=== PATIENT | female | born 1980 | race Two or more races ===

== ENCOUNTER 2024-09-19 15:09 | Emergency (ER) | payer OTHER, SELFPAY ==
[2024-09-19 15:09] VITALS: BMI 28.3
[2024-09-19 15:21] VITALS: BP 132/80; PULSE 115; RESP 20; TEMP 38.1; O2SAT 97
--- NOTE | 2024-09-19 15:26 | XR_ITS ---
Examination: PA lateral chest 2 views TECHNIQUE: Upright PA lateral chest 2 views Exam date and time: September 19, 2024 1553 hours INDICATIONS: Coughing vomiting beginning one week ago. FINDINGS: Reduced inspiratory effort Normal heart size Lungs are clear IMPRESSION: Poor inspiratory effort chest x-ray
[2024-09-19 15:32] VITALS: TEMP 38.1
[2024-09-19] MEDS: IBUPROFEN TAB 400 MG TABLET 800 MG PO (15:32)
--- NOTE | 2024-09-19 16:52 | PD.EDURI ---
Upper Respiratory Inf. RME/HPI General Chief Complaint: Flu Like Symptoms Stated Complaint: WEAK/VOMITING/COUGH TODAY Time Seen by Provider: 09/19/24 15:17 Arrival date/time: 09/19/24 15:09 43-year-old female presents [facility] department complaints of generalized fatigue, cough, vomiting which began today patient is daughter is being seen as well who tested positive for influenza today as well as strep throat Limitations: no limitations Related Data Home Medications ?Medication ?Instructions ?Recorded ?Confirmed atorvastatin 10 mg tablet 10 mg PO QDAY 10/13/21 10/21/22 ergocalciferol (vitamin D2) 1,250 1,250 mcg PO QWEEK 10/13/21 10/21/22 mcg (50,000 unit) capsule lisinopril 5 mg tablet 5 mg PO QDAY 10/13/21 10/21/22 ferrous sulfate 325 mg (65 mg 325 mg PO QDAY 10/21/22 10/21/22 iron) tablet (FeroSul) Previous Rx's ?Medication ?Instructions ?Recorded ciprofloxacin HCl 500 mg tablet 500 mg PO BID #14 tabs 10/21/22 (Cipro) ketorolac 10 mg tablet 10 mg PO Q8H #14 tabs 10/21/22 tamsulosin 0.4 mg capsule (Flomax) 0.4 mg PO QDAY #20 caps 10/21/22 naproxen 375 mg tablet 375 mg PO BID PRN pain #30 tabs 03/15/23 hydrocodone 5 mg-acetaminophen 325 1 tab PO BID PRN pain #10 tabs 05/12/23 mg tablet ibuprofen 600 mg tablet 600 mg PO Q6H #30 tabs 05/12/23 hydrocortisone 2.5 % topical cream 1 applic topical BID PRN itching 07/24/23 #30 grams ibuprofen 800 mg tablet 800 mg PO TID PRN pain #30 tabs 03/15/24 amoxicillin 875 mg-potassium 1 tab PO BID 7 days #14 tabs 09/19/24 clavulanate 125 mg tablet diphenhydramine HCl 25 mg capsule 25 mg PO Q8H PRN allergic symptoms 09/19/24 (Benadryl) #30 caps Allergies Allergy/AdvReac Type Severity Reaction Status Date / Time metoclopramide Allergy Severe Hives Verified 09/19/24 15:12 ondansetron Allergy Severe ITCHING, Verified 09/19/24 15:12 HIVES promethazine Allergy Severe RASH Verified 09/19/24 15:12 meperidine [From Demerol] Allergy Unknown Verified 09/19/24 15:12 Review of Systems Review of Systems Systems Reviewed: All systems reviewed, normal except as documented Constitutional Constitutional: Reports system reviewed and no additional complaints, except as documented, Reports body ache(s), Reports chills, Reports fever(s) and Reports headache(s) Eyes Eyes: Reports system reviewed and no additional complaints, except as documented and Denies blurry vision ENT Ears, Nose, Mouth, and Throat: Reports system reviewed and no additional complaints, except as documented, Reports headache(s), Reports nasal congestion and Reports nasal discharge Cardiovascular Cardiovascular: Reports system reviewed and no additional complaints, except as documented, Denies chest pain and Denies dyspnea Respiratory Respiratory: Reports system reviewed and no additional complaints, except as documented, Denies chest congestion, Denies cough and Denies dyspnea Gastrointestinal Gastrointestinal: Reports system reviewed and no additional complaints, except as documented, Denies abdominal pain, Reports nausea and Reports vomiting Integumentary/Breasts Skin/Breast: Reports system reviewed and no additional complaints, except as documented and Denies rash Neurologic Neurologic: Reports system reviewed and no additional complaints, except as documented, Reports as per HPI and Reports headache(s) Past Medical History Past Medical History NEUROLOGIC: Negative Neurological Disorders CARDIAC: Negative Cardiac Disorders ED Exam General Limitations: Present no limitations General appearance: Present alert and in no apparent distress Head Head exam: Present atraumatic Eye Eye exam: Present normal appearance, PERRL and EOMI ENT ENT exam: Present normal exam, normal oropharynx and mucous membranes moist Neck Neck exam: Present normal inspection, full ROM and trachea midline Chest Chest inspection: Present normal inspection and symmetric chest wall rise Respiratory Respiratory exam: Present normal lung sounds bilaterally Cardiovascular Cardiovascular exam: Present regular rate, normal rhythm and normal heart sounds Abdominal Exam Abdominal exam: Present soft and normal bowel sounds; Absent distention, tenderness, guarding, rebound, rigidity, Flores's sign or tenderness at McBurney's Point Abdominal tenderness: Absent RUQ or RLQ Extremities Exam Extremities exam: Present normal inspection and full ROM Back Exam Back exam: Present normal inspection and full ROM Neurological Exam Neurological exam: Present alert, oriented X3 and CN II-XII intact Psychiatric Psychiatric exam: Present normal affect and normal mood Skin Skin exam: Present warm, dry, intact and normal color Course Quality Measures none Orders Category Date Time Status Bedside COVID-19 Antigen Test NOW Care 09/19/24 15:18 Completed Bedside Influenza A&B Antigen Test NOW Care 09/19/24 15:18 Completed XR chest 2V Stat Exams 09/19/24 15:26 Completed Ibuprofen Tab [Motrin Tab] Med 09/19/24 15:27 Discontinued 800 mg PO X1 ONE Vital Signs Vital signs: Vital Signs Temperature 100.6 F H 09/19/24 15:21 Pulse Rate 115 H 09/19/24 15:21 Respiratory Rate 20 09/19/24 15:21 Blood Pressure 132/80 H 09/19/24 15:21 Pulse Oximetry (%) 97 09/19/24 15:21 Oxygen Delivery Method Room Air 09/19/24 15:21 O2 saturation 97% room air within normal limits Upper Respiratory Infection MDM Narrative MDM Narrative:: 43-year-old female presents emergency department complaints of generalized fatigue, cough, vomiting which began today patient is daughter is being seen as well who tested positive for influenza today as well as strep throat On exam patient well-appearing patient does not appear ill or toxic in no acute distress Lab work and x-ray obtained no acute emergent findings noted Symptoms are highly consistent with viral illness and patient has agreed to exposure to flu as well as strep throat because the patient was exposed to strep throat reports fever I will treat the patient with course of antibiotics Patient discharged home in no distress to follow-up with primary care doctor in the next 24 to 48 hours and for any worsening symptoms to return to the ER immediately Patient data External records reviewed:: [facility] previous records Clinical information provided by:: patient Social determinants that could affect healthcare access:: none Patient has the following chronic illnesses:: See history How is presenting disease/condition affected by chronic disease/condition?: uneffected by Evaluation data The following diagnostics were reviewed and interpreted by me:: lab results and radiology exam(s) Lab and/or radiology exams considered but not ordered:: Labs radiology obtained Interpretation Summary: Reviewed by me Medications / Prescriptions Medications or Prescriptions considered but not ordered:: Given Medication administrations:: Medication Administration History Discontinued Medications Ibuprofen (Ibuprofen Tab 400 Mg Tablet) 800 mg PO X1 ONE Stop: 09/19/24 15:28 Last Admin: 09/19/24 15:32 Dose: 800 mg Documented By: OA Given Consultations Consultation(s) initiated? (list below): No Diagnosis Upper Respiratory Differential Diagnosis: upper respiratory infection, otitis media, sinusitis, viral infection and pharyngitis Most likely diagnosis given after review of the tests above:: URI Admission Indicated Admission indicated?: not indicated Admission Request Was there a request for admission?: No Disposition Plan Disposition Plan: Discharge Discharge Attestation Discharge Attestation: The patient and all family members were given an opportunity to ask questions and understood the discharge instructions. Discharge instructions specifically effects, indications for sooner follow up or return to the emergency department, and the expected course of current diagnosis. Patient condition: Stable Discharge Plan Plan Patient Disposition: HOME (Self Care) Disposition Comment: Stable Prescriptions/Referrals Prescriptions/Med Rec: New diphenhydramine HCl [Benadryl] 25 mg capsule 25 mg PO Q8H PRN (Reason: allergic symptoms) Qty: 30 0RF amoxicillin-pot clavulanate 875-125 mg tablet 1 tab PO BID 7 Days Qty: 14 0RF No Action atorvastatin 10 mg tablet 10 mg PO QDAY Patient Comments: TAKE ONE TABLET BY MOUTH EVERY DAY FOR CHOLESTEROL lisinopril 5 mg tablet 5 mg PO QDAY Patient Comments: TAKE ONE TABLET BY MOUTH EVERY DAY FOR BLOOD PRESSURE ergocalciferol (vitamin D2) 1,250 mcg (50,000 unit) capsule 1,250 mcg PO QWEEK Patient Comments: TAKE ONE CAPSULE BY MOUTH ONCE A WEEK Rx Instructions: SUNDAYS naproxen 375 mg tablet 375 mg PO BID PRN (Reason: pain) Qty: 30 0RF hydrocodone-acetaminophen 5-325 mg tablet 1 tab PO BID MDD 10 PRN (Reason: pain) Qty: 10 0RF ibuprofen 600 mg tablet 600 mg PO Q6H Qty: 30 0RF hydrocortisone 2.5 % cream 1 applic topical BID PRN (Reason: itching) Qty: 30 0RF ferrous sulfate [FeroSul] 325 mg (65 mg iron) tablet 325 mg PO QDAY Patient Comments: TAKE ONE TABLET BY MOUTH EVERY DAY tamsulosin [Flomax] 0.4 mg capsule 0.4 mg PO QDAY Qty: 20 0RF ketorolac 10 mg tablet 10 mg PO Q8H Qty: 14 0RF ciprofloxacin HCl [Cipro] 500 mg tablet 500 mg PO BID Qty: 14 0RF ibuprofen 800 mg tablet 800 mg PO TID PRN (Reason: pain) Qty: 30 0RF Referrals: No Primary/Family,Physician [Primary Care Provider] - In 1 week Problem List Clinical Impression: Nausea & vomiting, Exposure to influenza Patient/Caregiver Discharge Instructions Print Language: Croatian Stand Alone Forms: Milly Award Info., Patient Portal Info Letter
[2024-09-19 16:59] VITALS: PULSE 88; TEMP 37.3
== END 2024-09-19 17:26 | disposition home or self-care (01) ==
PROVIDERS: Emergency Provider Emergency Medicine
DX: R11.2 Nausea with vomiting, unspecified (principal); Z20.828 Contact with and (suspected) exposure to other viral communicable diseases
CPT/HCPCS: 71046; 87400; 87811; 99283; A9270

== ENCOUNTER 2024-09-26 23:36 | Emergency (ER) | payer OTHER, SELFPAY ==
[2024-09-26 23:36] VITALS: BMI 28.3
[2024-09-27 00:37] VITALS: BP 121/86; PULSE 76; RESP 20; TEMP 36.8; O2SAT 99
--- NOTE | 2024-09-27 00:53 | EDNOTE_ITS ---
Upper Respiratory Inf. RME/HPI General Chief Complaint: Shortness of Breath/Dyspnea Stated Complaint: SOB X3 HR Time Seen by Provider: 09/27/24 00:49 Arrival date/time: 09/26/24 23:36 43F with no significant PMH presents to ED with several hours of SOB. Patient was diagnosed with both influenza and strep at the clinic and was given Penicillin IM. Limitations: no limitations Related Data Home Medications ?Medication ?Instructions ?Recorded ?Confirmed atorvastatin 10 mg tablet 10 mg PO QDAY 10/13/21 10/21/22 ergocalciferol (vitamin D2) 1,250 1,250 mcg PO QWEEK 10/13/21 10/21/22 mcg (50,000 unit) capsule lisinopril 5 mg tablet 5 mg PO QDAY 10/13/21 10/21/22 ferrous sulfate 325 mg (65 mg 325 mg PO QDAY 10/21/22 10/21/22 iron) tablet (FeroSul) Previous Rx's ?Medication ?Instructions ?Recorded ciprofloxacin HCl 500 mg tablet 500 mg PO BID #14 tabs 10/21/22 (Cipro) ketorolac 10 mg tablet 10 mg PO Q8H #14 tabs 10/21/22 tamsulosin 0.4 mg capsule (Flomax) 0.4 mg PO QDAY #20 caps 10/21/22 naproxen 375 mg tablet 375 mg PO BID PRN pain #30 tabs 03/15/23 hydrocodone 5 mg-acetaminophen 325 1 tab PO BID PRN pain #10 tabs 05/12/23 mg tablet ibuprofen 600 mg tablet 600 mg PO Q6H #30 tabs 05/12/23 hydrocortisone 2.5 % topical cream 1 applic topical BID PRN itching 07/24/23 #30 grams ibuprofen 800 mg tablet 800 mg PO TID PRN pain #30 tabs 03/15/24 diphenhydramine HCl 25 mg capsule 25 mg PO Q8H PRN allergic symptoms 09/19/24 (Benadryl) #30 caps Allergies Allergy/AdvReac Type Severity Reaction Status Date / Time metoclopramide Allergy Severe Hives Verified 09/26/24 23:38 ondansetron Allergy Severe ITCHING, Verified 09/26/24 23:38 HIVES promethazine Allergy Severe RASH Verified 09/26/24 23:38 meperidine [From Demerol] Allergy Unknown Verified 09/26/24 23:38 Review of Systems Review of Systems Systems Reviewed: All systems reviewed, normal except as documented Constitutional Constitutional: Reports system reviewed and no additional complaints, except as documented, Denies fever(s) and Denies headache(s) ENT Ears, Nose, Mouth, and Throat: Denies disequilibrium and Denies headache(s) Cardiovascular Cardiovascular: Reports system reviewed and no additional complaints, except as documented, Denies chest pain and Reports dyspnea Respiratory Respiratory: Reports system reviewed and no additional complaints, except as documented, Reports as per HPI, Denies cough and Reports dyspnea Gastrointestinal Gastrointestinal: Reports system reviewed and no additional complaints, except as documented, Denies abdominal pain, Denies nausea and Denies vomiting Neurologic Neurologic: Reports system reviewed and no additional complaints, except as documented, Denies confusion, Denies disequilibrium and Denies headache(s) Psychiatric Psychiatric: Denies confusion Past Medical History Past Medical History NEUROLOGIC: Positive Migraine; Negative Neurological Disorders, Cerebrovascular Accident, Transient Ischemic Attacks (TIA), Dementia, Alzheimer's Disease, Parkinson's Disease, Brain Tumor, Meningitis, Seizures, Epilepsy, Multiple Sclerosis, Cerebral Palsy, Amyotrophic Lateral Sclerosis (ALS/Abby Gehrig's), Guillain-Bronx Syndrome, Spina Bifida, Paralysis, Becerra's Palsy, Subdural Hematoma, Head Trauma, Spinal Cord Injury or Traumatic Brain Injury CARDIAC: Positive Hypercholesterolemia and Hypertension; Negative Cardiac Disorders, Myocardial Infarction, Cardiac Arrhythmia, Atrial Fibrillation, Angina, Heart Murmur, Coronary Artery Disease, Atherosclerotic Heart Disease, Peripheral Vascular Disease, Aneurysm, Congestive Heart Failure, Congenital Heart Disease, Valvular Heart Disease, Rheumatic Fever, Cardiomyop athy, Edema, Pericarditis, Cellulitis, Deep Vein Thrombosis, Hypotension or Varicose Veins RESPIRATORY: Negative Chronic Obstructive Pulmonary Disease (COPD), Asthma, Bronchitis, Emphysema, Pneumonia, Cystic Fibrosis, Tuberculosis, Pulmonary Embolism, Pulmonary Edema or Sleep Apnea GASTROINTESTINAL: Positive Gastrointestinal Disorders and Hemorrhoids; Negative Hepatitis, Cirrhosis, Pancreatitis, Celiac Disease, Gall Bladder Disease, Gastrointestinal Bleed, Esophageal Varices, Esparza's Esophagus, Colitis, Ulcerative Colitis, Diverticulitis, Diverticulosis, Ulcer, Colorectal Cancer, Irritable Bowel, Crohn's Disease, Obstructive Bowel, Hiatal Hernia, Gastroesophageal Reflux Disease or Obesity GENITOURINARY: Positive Genitourinary Disorders and Kidney Stones; Negative Renal Disease, Polycystic Kidney Disease, Neurogenic Bladder, Inguinal Hernia, Dialysis, Prostate Cancer or Benign Prostatic Hyperplasia REPRODUCTIVE: Positive Previous Pregnancies; Negative Breast Cancer, Endometriosis, Genital Herpes, Gonorrhea, Pelvic Inflammatory Disease, Syphilis, Testicular Cancer or Uterine Prolapse MUSCULOSKELETAL: Positive Musculoskeletal Disorders; Negative Muscular Dystrophy, Myasthenia Gravis, Marfan's Syndrome, Bone Cancer, Arthritis, Rheumatoid Arthritis, Osteoporosis, Degenerative Disk Disease, Gout, Scoliosis, Carpal Tunnel Syndrome, Fibromyalgia, Fractures, Degenerative Joint Disease, Osteomyelitis or Poliovirus ENT: Negative Cataracts, Glaucoma, Blind, Retinal Detachment, Macular Degeneration, Ear Infection, Deafness, Head Trauma or Eye Prosthesis ENDOCRINE: Negative Endocrine Disorders, Diabetes Mellitus Type 1, Diabetes Mellitus Type 2, Hypoglycemia, [place]'s Syndrome, Ojby's Disease, Hyperthyroidism, Hypothyroidism, Parathyroid Disease, Pituitary Disease, Systemic Lupus Erythematosus, Syndrome of Inappropriate Antidiuretic Hormone (SIADH), Adrenal Disease or Graves' Disease HEMATOLOGIC: Negative Blood Disorders, Anemia, Leukemia, Hemophilia, Thalassemia, Sickle Cell Disease or Clotting Problems PSYCHO/SOCIAL: Positive Anxiety and Depression; Negative Psychiatric Problems, Schizophrenia, Recreational Drug Use, Bipolar Disorder, Depression, Behavior Problems, Self-Mutilation, Attention Deficit Disorder, Attention Deficit Hyperactivity Disorder, Post Traumatic Stress Disorder or Eating Disorder OTHER HISTORY: Positive Hospitalization, Blood Transfusions, Chicken Pox and Ovarian Cancer; Negative Autoimmune Disease, Down Syndrome, Autism, Developmental Delay, Shingles, Falls, Blood Transfusion Reaction, Anesthesia Reactions, Organ Transplant, Chemotherapy, Radiation Therapy, Hyperbaric Therapy, MRSA, VRSA, Vancomycin-Resistant Enterococci, Human Immunodeficiency Virus (HIV), Measles, Mumps, Rubella ([place] Measles), Pertussis, Cancer, Breast Cancer, Cervical Cancer, Colorectal Cancer, Lung Cancer, Prostate Cancer or Testicular Cancer Family History FAMILY HISTORY: Positive Family Cardiac Disorders and Family Surgery; Negative Family Psychiatric Problems, Family Respiratory Disorders, Family Gastrointestinal Problems, Family Cancer or Family Anesthesia Reaction Surgical History SURGICAL: Positive Hysterectomy; Negative Cardiac Surgery, Open Heart Surgery, Coronary Artery Bypass Graft, Valve Replacement, Vascular Surgery, Coronary Stent, Cardiac Catheterization, Pacemaker, Angiogram, Auto Implanted Cardiovert Defib, Carotid Endarterectomy, Endocrine Surgery, Thyroidectomy, Ear Surgery, Tympanostomy Tube, Eye Surgery, Nose Surgery, Oral Surgery, Tonsillectomy, Adenoidectomy, Cochlear Implant, Corneal Transplant, Throat Surgery, Abdominal Surgery, Tracheostomy, Gastric Bypass Surgery, Gastrostomy, Bowel Surgery, Joint Replacement, Amputation, Open Reduction Internal Fixation, Arthroscopy, Neurologic Surgery, Brain Shunt, Mastectomy, Lumpectomy, Tubal Ligation, Section or Organ Transplant Social History SMOKING STATUS: Never smoker SUBSTANCE USE: does not use ED Exam General Limitations: Present no limitations General appearance: Present alert and in no apparent distress Head Head exam: Present atraumatic Eye Eye exam: Present normal appearance, PERRL and EOMI ENT ENT exam: Present mucous membranes moist Expanded ENT Exam Throat exam: Present tonsillar erythema and tonsillomegaly; Absent tonsillar exudate, R peritonsillar mass, L peritonsillar mass or muffled voice Neck Neck exam: Present normal inspection, full ROM and trachea midline Chest Chest inspection: Present normal inspection and symmetric chest wall rise Respiratory Respiratory exam: Present normal lung sounds bilaterally Cardiovascular Cardiovascular exam: Present regular rate, normal rhythm and normal heart sounds Abdominal Exam Abdominal exam: Present soft and normal bowel sounds Extremities Exam Extremities exam: Present normal inspection and full ROM Back Exam Back exam: Present normal inspection and full ROM Neurological Exam Neurological exam: Present alert, oriented X3 and CN II-XII intact Psychiatric Psychiatric exam: Present normal affect and normal mood Skin Skin exam: Present warm, dry, intact and normal color Course Quality Measures none Orders Category Date Time Status Albuterol/Ipratr Rt Elizabeth [Duoneb Rt Elizabeth] Med 09/27/24 00:49 Discontinued 3 ml INH X1 ONE Dexamethasone Inj [Decadron Inj] Med 09/27/24 01:21 Discontinued 10 mg PO X1 ONE Vital Signs Vital signs: Vital Signs Temperature 98.2 F 09/27/24 00:37 Pulse Rate 76 09/27/24 00:37 Respiratory Rate 20 09/27/24 00:37 Blood Pressure 121/86 H 09/27/24 00:37 Pulse Oximetry (%) 99 09/27/24 00:37 Oxygen Delivery Method Room Air 09/27/24 00:37 O2 at 99% on RA and WNLs Upper Respiratory Infection MDM Narrative MDM Narrative:: 43F with no significant PMH presents to ED with several hours of SOB. Patient was diagnosed with both influenza and strep at the clinic and was given Penicillin IM. Physical exam reveals red oropharynx, but otherwise clear ENT and lungs. No rash. Patient is afebrile, calm, and alert. Patient eloped prior to DC. Patient data External records reviewed:: [facility] previous records Clinical information provided by:: patient Social determinants that could affect healthcare access:: none Patient has the following chronic illnesses:: none How is presenting disease/condition affected by chronic disease/condition?: no chronic disease Evaluation data The following diagnostics were reviewed and interpreted by me:: other (specify) (none) Lab and/or radiology exams considered but not ordered:: not ordered Interpretation Summary: n/a Medications / Prescriptions Medications or Prescriptions considered but not ordered:: ordered Medication administrations:: Medication Administration History Discontinued Medications Albuterol/Ipratropium (Albuterol/Ipratropium (Duoneb) Rt Elizabeth 3 Ml Nebu) 3 ml INH X1 ONE Stop: 09/27/24 00:50 Last Admin: 09/27/24 01:06 Dose: 3 ml Documented By: SHIRIN Dexamethasone Sodium Phosphate (Dexamethasone Sod Phos Inj 10 Mg/Ml Vial) 10 mg PO X1 ONE Stop: 09/27/24 01:22 Last Admin: 09/27/24 02:02 Dose: 10 mg Documented By: MINAL above Consultations Consultation(s) initiated? (list below): No Diagnosis Upper Respiratory Differential Diagnosis: upper respiratory infection, croup, otitis media, sinusitis, viral infection, bronchitis, influenza and pharyngitis Most likely diagnosis given after review of the tests above:: influenza, strep Admission Indicated Admission indicated?: not indicated Admission Request Was there a request for admission?: No Disposition Plan Disposition Plan: other (specify) (eloped) Discharge Plan Plan Patient Disposition: Elopement Prescriptions/Referrals Prescriptions/Med Rec: No Action atorvastatin 10 mg tablet 10 mg PO QDAY Patient Comments: TAKE ONE TABLET BY MOUTH EVERY DAY FOR CHOLESTEROL lisinopril 5 mg tablet 5 mg PO QDAY Patient Comments: TAKE ONE TABLET BY MOUTH EVERY DAY FOR BLOOD PRESSURE ergocalciferol (vitamin D2) 1,250 mcg (50,000 unit) capsule 1,250 mcg PO QWEEK Patient Comments: TAKE ONE CAPSULE BY MOUTH ONCE A WEEK Rx Instructions: SUNDAYS naproxen 375 mg tablet 375 mg PO BID PRN (Reason: pain) Qty: 30 0RF hydrocodone-acetaminophen 5-325 mg tablet 1 tab PO BID MDD 10 PRN (Reason: pain) Qty: 10 0RF ibuprofen 600 mg tablet 600 mg PO Q6H Qty: 30 0RF hydrocortisone 2.5 % cream 1 applic topical BID PRN (Reason: itching) Qty: 30 0RF ferrous sulfate [FeroSul] 325 mg (65 mg iron) tablet 325 mg PO QDAY Patient Comments: TAKE ONE TABLET BY MOUTH EVERY DAY tamsulosin [Flomax] 0.4 mg capsule 0.4 mg PO QDAY Qty: 20 0RF ketorolac 10 mg tablet 10 mg PO Q8H Qty: 14 0RF ciprofloxacin HCl [Cipro] 500 mg tablet 500 mg PO BID Qty: 14 0RF ibuprofen 800 mg tablet 800 mg PO TID PRN (Reason: pain) Qty: 30 0RF diphenhydramine HCl [Benadryl] 25 mg capsule 25 mg PO Q8H PRN (Reason: allergic symptoms) Qty: 30 0RF Referrals: Tony Gutiérrez MD [Primary Care Provider] - In 1 week Problem List Clinical Impression: Acute streptococcal pharyngitis, Influenza Patient/Caregiver Discharge Instructions Print Language: Bengali PA/[employer] Supervising Physician PA/[employer] Supervising Physician: Dr. Caro
[2024-09-27 01:06] VITALS: PULSE 65; RESP 18; O2SAT 99
[2024-09-27] MEDS: ALBUTEROL/IPRATROPIUM (Duoneb) RT SOL 3 ML NEBU INH (01:06)
[2024-09-27] MEDS: DEXAMETHASONE SOD PHOS INJ 10 MG/ML VIAL PO (02:02)
--- NOTE | 2024-09-27 02:43 | PC.NURSE ---
PT CALLED BACK TO A RM AND NO ANSWER AT THIS TIME
--- NOTE | 2024-09-27 02:58 | PC.NURSE ---
PT CALLED TO A ROOM AND NO ANSWER
--- NOTE | 2024-09-27 03:12 | PC.NURSE ---
PT CALLED BACK TO A ROOM AND NO ANSWER
== END 2024-09-27 03:13 | disposition left against medical advice (07) ==
PROVIDERS: Emergency Provider Emergency Medicine; PCP Family Medicine
DX: J02.0 Streptococcal pharyngitis (principal); J11.1 Influenza due to unidentified influenza virus with other respiratory manifestations
CPT/HCPCS: 94640; 99283; A9270; J1100

== ENCOUNTER 2025-07-28 05:18 | Emergency (ER) | payer BC, SELFPAY ==
[2025-07-28 05:20] VITALS: BMI 29.2
[2025-07-28 05:29] VITALS: BP 164/84; PULSE 83; RESP 20; TEMP 36.9; O2SAT 96
--- NOTE | 2025-07-28 05:36 | XR_ITS ---
Examination: Wrist, left 3 views Technique: Wrist AP, oblique, lateral 3 views Date and time of exam: July 28, 2025, 0615 hours INDICATIONS: Patient fell today with injury of the wrist, wrist pain FINDINGS: No fracture or dislocation No foreign body IMPRESSION: No fracture or dislocation
--- NOTE | 2025-07-28 05:42 | EDRME_ITS ---
Rapid Medical Screening Exam [facility] Arrival date/time: 07/28/25 05:18 44F with no significant PMH presents to ED with L wrist pain after trip and fall. Patient denies hitting head/neck. Chief Complaint: Hand/Wrist Problems Vital signs: Vital Signs Temperature 98.5 F 07/28/25 05:29 Pulse Rate 83 07/28/25 05:29 Respiratory Rate 20 07/28/25 05:29 Blood Pressure 164/84 H 07/28/25 05:29 Pulse Oximetry (%) 96 07/28/25 05:29 Oxygen Delivery Method Room Air 07/28/25 05:29
--- NOTE | 2025-07-28 09:21 | EDNOTE_ITS ---
<Statement entered by Marily Ty MD - 08/12/25 14:15> As co-signing physician, I was present and available for consult prn. I concur with the plan and care as documented by the midlevel provider. Upper Extremity Injury RME/HPI General Chief Complaint: Hand/Wrist Problems Stated Complaint: LEFT WRIST AND HAND PAIN Time Seen by Provider: 07/28/25 09:04 Arrival date/time: 07/28/25 05:18 This is a 44-year-old female that comes in with left wrist and hand pain after tripping over child's toy. Patient states that she fell on her left arm. Patient denies any numbness tingling. Patient has full range of motion of left wrist but just has pain. Patient has no wounds to arm. RME / HPI RME / HPI narrative: 07/28/25 05:18 44F with no significant PMH presents to ED with L wrist pain after trip and fall. Patient denies hitting head/neck. Related Data Home Medications ?Medication ?Instructions ?Recorded ?Confirmed atorvastatin 10 mg tablet 10 mg PO QDAY 10/13/2110/21 ergocalciferol (vitamin D2) 1,250 1,250 mcg PO QWEEK 0 10/13/21 10/21/22 mcg (50,000 unit) capsule lisinopril 5 mg tablet 5 mg PO QDAY 10/13/21 ferrous sulfate 325 mg (65 mg 325 mg PO QDAY 10/21/22 10/21/22 iron) tablet (FeroSul) Previous Rx's ?Medication ?Instructions ?Recorded ciprofloxacin HCl 500 mg tablet 500 mg PO BID #14 tabs 10/21/22 (Cipro) ketorolac 10 mg tablet 10 mg PO Q8H #14 tabs tamsulosin 0.4 mg capsule (Flomax) 0.4 mg PO QDAY #20 caps 10/21/22 naproxen 375 mg tablet 375 mg PO BID PRN pain #30 t abs 03/15/23 hydrocodone 5 mg-acetaminophen 325 1 tab PO BID PRN pa in #10 tabs 05/12/23 mg tablet ibuprofen 600 mg tablet 600 mg PO Q6H #30 tabs 05/12 hydrocortisone 2.5 % topical cream 1 applic topical BI D PRN itching 07/24/23 #30 grams ibuprofen 800 mg tablet 800 mg PO TID PRN pain #30 t abs 03/15/24 diphenhydramine HCl 25 mg capsule 25 mg PO Q8H PRN all ergic symptoms 09/19/24 (Benadryl) #30 caps Allergies Allergy/AdvReac Type Severity Reaction Status Date / Time metoclopramide Allergy Severe Hives Verified 07/28/25 05:20 ondansetron Allergy Severe ITCHING, Verified 07/28/25 05:20 HIVES promethazine Allergy Severe RASH Verified 07/28/25 05:20 meperidine (From Demerol) Allergy Unknown Verified 07/28/25 05:20 Review of Systems Review of Systems Systems Reviewed: All systems reviewed, normal except as documented Past Medical History Past Medical History NEUROLOGIC: Positive Migraine; Negative Neurological Disorders, Cerebrovascular Accident, Transient Ischemic Attacks (TIA), Dementia, Alzheimer's Disease, Parkinson's Disease, Brain Tumor, Meningitis, Seizures, Epilepsy, Multiple Sclerosis, Cerebral Palsy, Amyotrophic Lateral Sclerosis (ALS/Abby Gehrig's), Guillain-[place] Syndrome, Spina Bifida, Paralysis, Becerra's Palsy, Subdural Hematoma, Head Trauma, Spinal Cord Injury or Traumatic Brain Injury CARDIAC: Positive Hypercholesterolemia and Hypertension; Negative Cardiac Disorders, Myocardial Infarction, Cardiac Arrhythmia, Atrial Fibrillation, Angina, Heart Murmur, Coronary Artery Disease, Atherosclerotic Heart Disease, Peripheral Vascular Disease, Aneurysm, Congestive Heart Failure, Congenital Heart Disease, Valvular Heart Disease, Rheumatic Fever, Cardiomyopathy, Edema, Pericarditis, Cellulitis, Deep Vein Thrombosis, H ypotension or Varicose Veins RESPIRATORY: Negative Chronic Obstructive Pulmonary Disease (COPD), Asthma, Bronchitis, Emphysema, Pneumonia, Cystic Fibrosis, Tuberculosis, Pulmonary Embolism, Pulmonary Edema or Sleep Apnea GASTROINTESTINAL: Positive Gastrointestinal Disorders and Hemorrhoids; Negative Hepatitis, Cirrhosis, Pancreatitis, Celiac Disease, Gall Bladder Disease, Gastrointestinal Bleed, Esophageal Varices, Esparza's Esophagus, Colitis, Ulcerative Colitis, Diverticulitis, Diverticulosis, Ulcer, Colorectal Cancer, Irritable Bowel, Crohn's Disease, Obstructive Bowel, Hiatal Hernia, Stephanie roesophageal Reflux Disease or Obesity GENITOURINARY: Positive Genitourinary Disorders and Kidney Stones; Negative Renal Disease, Polycystic Kidney Disease, Neurogenic Bladder, Inguinal Hernia, Dialysis, Prostate Cancer or Benign Prostatic Hyperplasia REPRODUCTIVE: Positive Previous Pregnancies; Negative Breast Cancer, Endometriosis, Genital Herpes, Gonorrhea, Pelvic Inflammatory Disease, Syphilis, Testicular Cancer or Uterine Prolapse MUSCULOSKELETAL: Positive Musculoskeletal Disorders; Negative Muscular Dystrophy, Myasthenia Gravis, Marfan's Syndrome, Bone Cancer, Arthritis, Rheumatoid Arthritis, Osteoporosis, Degenerative Disk Disease, Gout, Scoliosis, Carpal Tunnel Syndrome, Fibromyalgia, Fractures, Degenerative Joint Disease, Osteomyelitis or Poliovirus ENT: Negative Cataracts, Glaucoma, Blind, Retinal Detachment, Macular Degeneration, Ear Infection, Deafness, Head Trauma or Eye Prosthesis ENDOCRINE: Negative Endocrine Disorders, Diabetes Mellitus Type 1, Diabetes Mellitus Type 2, Hypoglycemia, [place]'s Syndrome, Jefferson's Disease, Hyperthyroidism, Hypothyroidism, Parathyroid Disease, Pituitary Disease, Systemic Lupus Erythematosus, Syndrome of Inappropriate Antidiuretic Hormone (SIADH), Adrenal Disease or Graves' Disease HEMATOLOGIC: Negative Blood Disorders, Anemia, Leukemia, Hemophilia, Thalassemia, Sickle Cell Disease or Clotting Problems PSYCHO/SOCIAL: Positive Anxiety and Depression; Negative Psychiatric Problems, Schizophrenia, Recreational Drug Use, Bipolar Disorder, Depression, Behavior Problems, Self-Mutilation, Attention Deficit Disorder, Attention Deficit Hyperactivity Disorder, Post Traumatic Stress Disorder or Eating Disorder OTHER HISTORY: Positive Hospitalization, Blood Transfusions, Chicken Pox and Ovarian Cancer; Negative Autoimmune Disease, Down Syndrome, Autism, Developmental Delay, Shingles, Falls, Blood Transfusion Reaction, Anesthesia Reactions, Organ Transplant, Chemotherapy, Radiation Therapy, Hyperbaric Therapy, MRSA, VRSA, Vancomycin-Resistant Enterococci, Human Immunodeficiency Virus (HIV), Measles, Mumps, Rubella ([place] Measles), Pertussis, Cancer, Breast Cancer, Cervical Cancer, Colorectal Cancer, Lung Cancer, Prostate Cancer or Testicular Cancer Family History FAMILY HISTORY: Positive Family Cardiac Disorders and Family Surgery; Negative Family Psychiatric Problems, Family Respiratory Disorders, Family Gastrointestinal Problems, Family Cancer or Family Anesthesia Reaction Surgical History SURGICAL: Positive Hysterectomy; Negative Cardiac Surgery, Open Heart Surgery, Coronary Artery Bypass Graft, Valve Replacement, Vascular Surgery, Coronary Stent, Cardiac Catheterization, Pacemaker, Angiogram, Auto Implanted Cardiovert Defib, Carotid Endarterectomy, Endocrine Surgery, Thyroidectomy, Ear Surgery, Tympanostomy Tube, Eye Surgery, Nose Surgery, Oral Surgery, Tonsillectomy, Adenoidectomy, Cochlear Implant, Corneal Transplant, Throat Surgery, Abdominal Surgery, Tracheostomy, Gastric Bypass Surgery, Gastrostomy, Bowel Surgery, Joint Replacement, Amputation, Open Reduction Internal Fixation, Arthroscopy, Neurologic Surgery, Brain Shunt, Mastectomy, Lumpectomy, Tubal Ligation, Section or Organ Transplant Social History SMOKING STATUS: Never smoker SUBSTANCE USE: does not use ED Exam Narrative Physical exam: VITAL SIGNS: Reviewed. GENERAL APPEARANCE: Alert and interactive, follows commands, no acute distress HEAD AND FACE: Non-traumatic. ENT: PERRL, conjuctiva pink and clear, eyelid no trauma, Mucous membrane moist. NECK: Supple, nontender, no nuchal rigidity. CHEST: No tenderness, no crepitus, no paradoxical movement, no retractions. LUNGS: breathing even and unlabored HEART: Regular rate, cap refill less than 2 seconds ABDOMEN: Soft, nondistended, no guarding, nontender, no rebound, no masses, NEUROLOGICAL: Gross motor function intact sensory function intact, Appropriate for age. MUSCULOSKELETAL: low back nontender, full range of motion. no midline tenderness, no meningismus, no step offs EXTREMITIES: No redness no swelling no skin breakdown on bilateral foot and leg. Distal neurovascular status intact bilateral foot, no snuffbox tenderness, full range of motion of left wrist but does have pain. SKIN: Color pink, dry Course Quality Measures none Orders Category Date Time Status sling [Splint / Immobilizer] STAT Care 07/28/25 09:24 Completed XR wrist comp LT min 3V Stat Exams 07/28/25 05:36 Completed HYDROcodone*/APAP 5/325 [[place]o 5/325] Med 07/28/25 05:36 Discontinued 1 tab PO X1 ONE Vital Signs Vital signs: Vital Signs Temperature 98.5 F 07/28/25 05:29 Pulse Rate 83 07/28/25 05:29 Respiratory Rate 20 07/28/25 05:29 Blood Pressure 164/84 H 07/28/25 05:29 Pulse Oximetry (%) 96 07/28/25 05:29 Oxygen Delivery Method Room Air 07/28/25 05:29 Extremity Injury MDM Narrative MDM Narrative:: left wrist x ray: FINDINGS: No fracture or dislocation No foreign body IMPRESSION: No fracture or dislocation Spoke to patient at length. Will give patient an Joe wrap and a sling. Patient told to take Tyle and ibuprofen at home. Patient offered pain medication but states she has pain medication at home. Today patient had xray.There was no acute fracture seen. Exam appeared unremarkable. I explained to patient at length that if there was continued pain to this area or worsened to come back to ED or see primary provider for more xrays or further testing such as CT scan or MRI. X rays are not perfect and sometimes serial films needed. Patient verbalized understanding. Patient states they will follow up with primary provider in 1-2 days or come back to ED if symptoms change or worsen. Dragon dictation: Although this document has been carefully reviewed, there may still be some phonetic and other typographical errors. These errors are purely grammatical due to imperfections in the software program and should not be construed in any way to compromise the substance of the patient's medical care during this visit. Patient data External records reviewed:: [facility] previous records Clinical information provided by:: patient Social determinants that could affect healthcare access:: none Patient has the following chronic illnesses:: See note How is presenting disease/condition affected by chronic disease/condition?: no chronic disease Evaluation data The following diagnostics were reviewed and interpreted by me:: radiology exam(s) Lab and/or radiology exams considered but not ordered:: None Interpretation Summary: See note Medications / Prescriptions Medications or Prescriptions considered but not ordered:: None Medication administrations:: Medication Administration History Discontinued Medications Hydrocodone Bitart/Acetaminophen (Hydrocodone/Apap 5/325 Tablet) 1 tab PO X1 ONE Stop: 07/28/25 05:37 Last Admin: 07/28/25 05:51 Dose: Not Given Documented By: RODRIGO Non-Admin Reason: Patient Refused See [facility] Consultations Consultation(s) initiated? (list below): No Diagnosis Upper Extremity Injury Differential Diagnosis: sprain and strain of wrist, fracture of wrist and fracture of hand Most likely diagnosis given after review of the tests above:: Contusion Admission Indicated Admission indicated?: not indicated Admission Request Was there a request for admission?: No Disposition Plan Disposition Plan: Discharge Discharge Attestation Discharge Attestation: The patient and all family members were given an opportunity to ask questions and understood the discharge instructions. Discharge instructions specifically effects, indications for sooner follow up or return to the emergency department, and the expected course of current diagnosis. Patient condition: Stable Discharge Plan Plan Patient Disposition: HOME (Self Care) Patient condition on transfer: Stable Prescriptions/Referrals Prescriptions/Med Rec: No Action atorvastatin 10 mg tablet 10 mg PO QDAY Patient Comments: TAKE ONE TABLET BY MOUTH EVERY DAY FOR CHOLESTEROL lisinopril 5 mg tablet 5 mg PO QDAY Patient Comments: TAKE ONE TABLET BY MOUTH EVERY DAY FOR BLOOD PRESSURE ergocalciferol (vitamin D2) 1,250 mcg (50,000 unit) capsule 1,250 mcg PO QWEEK Patient Comments: TAKE ONE CAPSULE BY MOUTH ONCE A WEEK Rx Instructions: SUNDAYS naproxen 375 mg tablet 375 mg PO BID PRN (Reason: pain) Qty: 30 0RF hydrocodone-acetaminophen 5-325 mg tablet 1 tab PO BID MDD 10 PRN (Reason: pain) Qty: 10 0RF ibuprofen 600 mg tablet 600 mg PO Q6H Qty: 30 0RF hydrocortisone 2.5 % cream 1 applic topical BID PRN (Reason: itching) Qty: 30 0RF ferrous sulfate [FeroSul] 325 mg (65 mg iron) tablet 325 mg PO QDAY Patient Comments: TAKE ONE TABLET BY MOUTH EVERY DAY tamsulosin [Flomax] 0.4 mg capsule 0.4 mg PO QDAY Qty: 20 0RF ketorolac 10 mg tablet 10 mg PO Q8H Qty: 14 0RF ciprofloxacin HCl [Cipro] 500 mg tablet 500 mg PO BID Qty: 14 0RF ibuprofen 800 mg tablet 800 mg PO TID PRN (Reason: pain) Qty: 30 0RF diphenhydramine HCl [Benadryl] 25 mg capsule 25 mg PO Q8H PRN (Reason: allergic symptoms) Qty: 30 0RF Referrals: No Primary/Family,Physician [Primary Care Provider] - In 1 week Problem List Clinical Impression: Contusion of arm Patient/Caregiver Discharge Instructions Discharge Activity: activity as tolerated Education Materials: Bruises (Contusions) Additional Instructions: Follow up with primary provider in 1-2 days. Come back to ED if symptoms change or worsen Print Language: Chadian Stand Alone Forms: Milly Award Info., Patient Portal Info Letter PA/[employer] EQU[employer]MENT MECHANIC Supervising Physician PA/HEAV[employer] EQUIPMENT MECHANIC Supervising Physician: aretha
== END 2025-07-28 09:44 | disposition home or self-care (01) ==
PROVIDERS: Emergency Provider Emergency Medicine
DX: S40.022A Contusion of left upper arm, initial encounter (principal); M25.532 Pain in left wrist; W01.0XXA Fall on same level from slipping, tripping and stumbling without subsequent striking against object, initial encounter
CPT/HCPCS: 73110; 99284